=== PATIENT | male | born 1985 | race Caucasian/White ===

== ENCOUNTER 2020-10-23 12:53 | Emergency (ER) | payer OTHER ==
[2020-10-23 14:14] LABS: HEMOGLOBIN 13.9 gm/dl (14.0-17.5); RED BLOOD COUNT 4.58 M/UL (4.20-5.50); WHITE BLOOD COUNT 13.9 K/UL (4.5-11.0)
[2020-10-23 14:33] LABS: BUN/CREATININE RATIO 9 (0-10)
[2020-10-23] MEDS ORDERED: ZOFRAN4 MG PO (16:29)
[2020-10-23] MEDS ORDERED: ENDOCET 5-3251 EACH PO (16:33)
== END 2020-10-23 17:10 | disposition home or self-care (01) ==
LOC: ER1 12:53
PROVIDERS: Physician Assistant
DX: S82.141A Displaced bicondylar fracture of right tibia, initial encounter for closed fracture (principal); R11.2 Nausea with vomiting, unspecified; R50.9 Fever, unspecified; W17.89XA Other fall from one level to another, initial encounter; Y92.89 Other specified places as the place of occurrence of the external cause; Y99.0 Civilian activity done for income or pay; Z20.822 Contact with and (suspected) exposure to COVID-19
CPT/HCPCS: 29530; 73564; 73700; 80053; 85025; 96374; 96375; 99284; J2270; J2405; J2550; J7030; U0002

== ENCOUNTER 2020-11-04 11:32 | Observation (INO) | payer OTHER ==
[~2020-11-04] VITALS: Ht 190.5 cm; Wt 93.2 kg
[~2020-11-04 11:32] MED LIST: ENDOCET 5-3251 EACH PO; ZOFRAN4 MG PO
[2020-11-04 12:11] LABS: RED BLOOD COUNT 4.67 M/UL (4.20-5.50); WHITE BLOOD COUNT 10.7 K/UL (4.5-11.0)
[2020-11-04 12:32] LABS: BUN/CREATININE RATIO 10 (0-10)
[2020-11-06] MEDS ORDERED: CYCLOBENZAPRINE10 MG PO (09:39)
== END 2020-11-06 11:23 | disposition home or self-care (01) ==
LOC: OR 11:32 → M/S 20:10 → OR 11-05 12:00 → M/S 11-05 12:00
PROVIDERS: ADMIT Orthopaedic Surgery
DX: S82.141A Displaced bicondylar fracture of right tibia, initial encounter for closed fracture (principal); F17.210 Nicotine dependence, cigarettes, uncomplicated; W19.XXXA Unspecified fall, initial encounter; Y99.0 Civilian activity done for income or pay; Z23 Encounter for immunization; Z79.899 Other long term (current) drug therapy
CPT/HCPCS: 36415; 73560; 76000; 80048; 85025; 96374; 96376; 97162; 97165; C1713; G0378; J0171; J0690; J1100; J1170; J1885; J2001; J2250; J2405; J2704; J2795; J3010; J7120; Q9962

== ENCOUNTER 2020-12-22 10:42 | Emergency (ER) | payer OTHER ==
[~2020-12-22 10:42] MED LIST changes: +CYCLOBENZAPRINE10 MG PO
[2020-12-22 11:24] LABS: HEMOGLOBIN 15.9 gm/dl (14.0-17.5); RED BLOOD COUNT 5.01 M/UL (4.20-5.50); WHITE BLOOD COUNT 14.4 K/UL (4.5-11.0)
[2020-12-22] MEDS ORDERED: ZOFRAN ODT 4 MG4 MG GT (14:00)
== END 2020-12-22 14:15 | disposition home or self-care (01) ==
LOC: ER1 10:42
PROVIDERS: Family Medicine
DX: R11.2 Nausea with vomiting, unspecified (principal); F17.210 Nicotine dependence, cigarettes, uncomplicated
CPT/HCPCS: 80053; 80307; 81001; 83605; 83690; 85025; 96374; 96375; 96376; 99284; J1885; J2550; J7030

== ENCOUNTER 2022-05-05 19:02 | Inpatient (IN) | payer OTHER ==
[~2022-05-05] VITALS: Ht 182.9 cm; Wt 90.7 kg
[~2022-05-05 19:02] MED LIST changes: +ZOFRAN ODT 4 MG4 MG GT
[2022-05-05 20:07] LABS: HEMOGLOBIN 12.8 gm/dl (14.0-17.5); RED BLOOD COUNT 3.96 M/UL (4.20-5.50); WHITE BLOOD COUNT 7.4 K/UL (4.5-11.0)
[2022-05-05 20:35] LABS: BUN/CREATININE RATIO 12 (0-10)
[2022-05-07 06:20] LABS: WHITE BLOOD COUNT 7.7 K/UL (4.5-11.0)
[2022-05-07 06:45] LABS: RED BLOOD COUNT 4.52 M/UL (4.20-5.50)
[2022-05-07 06:48] LABS: BUN/CREATININE RATIO 11 (0-10)
[2022-05-09] MEDS ORDERED: ZYVOX600 MG PO (12:25)
[2022-05-09] MEDS ORDERED: AMOX TR-K CLV1 EAC4 PO (12:25)
[2022-05-09] MEDS ORDERED: HYDROCODON-ACE1 EAC4 PO ×2 (12:38→15:56)
== END 2022-05-09 15:09 | disposition home or self-care (01) | DRG 581 ==
LOC: ER1 19:02 → M/S 22:54 → MED SURG 4 22:54 → CDU 22:54 → M/S 05-06 11:17 → MED SURG 4 05-06 19:59
PROVIDERS: Emergency Medicine; Internal Medicine; Orthopaedic Surgery; ADMIT Internal Medicine
PROC: 3E0234Z Introduction of Serum, Toxoid and Vaccine into Muscle, Percutaneous Approach (ICD-10-PCS; 2022-05-05)
PROC: 0J9J0ZZ Drainage of Right Hand Subcutaneous Tissue and Fascia, Open Approach (ICD-10-PCS; 2022-05-07)
PROC: 0JBJ0ZZ Excision of Right Hand Subcutaneous Tissue and Fascia, Open Approach (ICD-10-PCS; principal; 2022-05-07 12:00)
DX: L02.511 Cutaneous abscess of right hand (principal); L03.011 Cellulitis of right finger; L08.89 Other specified local infections of the skin and subcutaneous tissue; Z20.822 Contact with and (suspected) exposure to COVID-19; Z96.698 Presence of other orthopedic joint implants; F17.210 Nicotine dependence, cigarettes, uncomplicated; X58.XXXA Exposure to other specified factors, initial encounter; R73.9 Hyperglycemia, unspecified; Z23 Encounter for immunization
CPT/HCPCS: 36415; 73130; 80048; 80053; 80202; 83605; 85025; 85652; 86140; 87040; 87070; 87205; 90471; 90715; 96374; 96375; 99284; G0378; J0690; J2250; J2270; J3010; J3370; J7030; J7070